=== PATIENT | male | born 1960 | race Caucasian/White ===

== ENCOUNTER 2016-08-18 16:25 | Emergency (ER) | payer OTHER ==
[~2016-08-18] VITALS: Ht 175.3 cm; Wt 95.6 kg
[~2016-08-18 16:25] MED LIST: ADVAIR 250/501 DISK IH; ASPIRIN81 M2 PO; CLARITIN10 M3 PO; COZAAR100 MG PO; FLONASE16 G1 BOTH NARES; IRON256 MG PO; KEFLEX500 MG PO; LORTAB 5-325 M1 EACH PO; NEXIUM40 MG PO; SINGULAIR10 MG PO; SYNTHROID100 MCG PO; VITAMIN C1000 M1 PO; ZOCOR40 MG PO
[2016-08-18 17:11] LABS: HEMATOCRIT 41.4 % (38.0-50.0); MCHC 31.2 G/DL (30.0-36.0); MCV 80.4 FL (86-99); MEAN PLAT.VOLUME 9.6 uM^3 (9.0-12.4); PLATELET COUNT 315 K/uL (156-360); RBC DIS.WIDTH-CV 14.1 % (11.8-14.6); RBC DIS.WIDTH-SD 40.7 % (39-53); RED BLOOD COUNT 5.15 M/uL (4.00-5.50); WHITE BLOOD COUNT 9.3 K/uL (4.1-10.2)
[2016-08-18 17:20] LABS: CHLORIDE 103 mEq/L (99-109); SODIUM 138 mEq/L (136-147)
[2016-08-18 17:22] LABS: GLUCOSE 95 mg/dL (70-99)
[2016-08-18 17:23] LABS: ANION GAP 8 MEQ/L (2-14)
[2016-08-18 17:24] LABS: TOTAL BILIRUBIN 1.3 mg/dL (0.0-1.0)
[2016-08-18 17:25] LABS: ALKALINE PHOSPHATASE 80 IU/L (3-129)
[2016-08-18 17:26] LABS: GFR ESTIMATE (CALCULATED) > 59 mL/min/
[2016-08-18 17:27] LABS: UREA NITROGEN (BUN) 14 mg/dL (9-23)
[2016-08-18] MEDS ORDERED: NAPROSYN500 MG PO (20:00)
[2016-08-18 20:21] VITALS: BP 147/96
== END 2016-08-18 20:21 | disposition home or self-care (01) ==
LOC: EME 16:25
PROVIDERS: Nurse Practitioner Family
DX: M71.22 Synovial cyst of popliteal space [Baker], left knee (principal); M79.662 Pain in left lower leg; J45.909 Unspecified asthma, uncomplicated; I10 Essential (primary) hypertension; E03.9 Hypothyroidism, unspecified; Z96.652 Presence of left artificial knee joint
CPT/HCPCS: 73564; 80053; 85027; 93971; 99281; 99284